=== PATIENT | female | born 1990 | race Caucasian/White ===

== ENCOUNTER 2017-12-31 17:40 | Emergency (ER) | payer SELFPAY ==
[~2017-12-31] VITALS: Ht 157.5 cm; Wt 85.3 kg
[2017-12-31 17:57] VITALS: BP 107/68
[2017-12-31 18:35] LABS: Basophils # (auto) 0.1 uL; Basophils % (auto) 0.7 % (0.0-2.0); Eosinophils # (auto) 0.2 uL; Eosinophils % (auto) 1.5 % (0.0-7.0); Hemoglobin 12.9 g/dL (12.2-16.2); Lymphocytes # (auto) 2.4 uL; Lymphocytes % (auto) 21.7 % (10.0-50.0); Mean Corpuscular Hemoglobin 29.1 pg (28.0-32.0); Mean Corpuscular Volume 88.1 fL (80.0-100.0); Monocytes # (auto) 0.5 uL; Monocytes % (auto) 4.1 % (0.0-12.0); Neutrophils # (auto) 8.1 uL; Nucleated Red Blood Cells % 0.1 %; Red Blood Cells 4.43 10^6/uL (4.0-5.20); Red Cell Distribution Width 14.6 % (11.8-14.3); White Blood Cell 11.2 10^3/uL (4.4-10.8)
[2017-12-31 18:37] LABS: Platelet Count (auto) 132 10^3/uL (140-450)
[2017-12-31 18:55] LABS: Alanine Aminotransferase 13 U/L (13-56); Albumin 3.1 g/dL (3.4-5.0); Alkaline Phosphatase 68 U/L (45-117); Anion Gap 9 (5-15); Aspartate Aminotransferase 8 U/L (15-37); BUN/Creatinine Ratio 17.2; Bilirubin, Total < 0.1 mg/dL (0.2-1.0); Blood Urea Nitrogen 10 mg/dL (7-18); Calcium 8.4 mg/dL (8.5-10.1); Carbon Dioxide 21 mmol/L (21-32); Chloride 106 mmol/L (98-107); GFR African American 159 mL/min; GFR Non-African American 132 mL/min; Glucose 108 mg/dL (74-106); Potassium 3.5 mmol/L (3.5-5.1); Sodium 136 mmol/L (136-145); Total Protein 7.4 g/dL (6.4-8.2)
[2017-12-31 19:11] LABS: Thyroid Stimulating Hormone 5.6 uIU/mL (0.358-3.74)
[2017-12-31 19:48] LABS: Urine Bacteria MANY /hpf (None Seen); Urine Blood Negative /uL (Negative); Urine Mucus FEW (None Seen); Urine Specific Gravity 1.018 (1.001-1.035); Urine WBC 11 /hpf (0 - 5)
== END 2017-12-31 20:39 | disposition home or self-care (01) ==
LOC: ER 17:40
DX: O20.0 Threatened abortion (principal); O23.42 Unspecified infection of urinary tract in pregnancy, second trimester; O99.282 Endocrine, nutritional and metabolic diseases complicating pregnancy, second trimester; Z3A.13 13 weeks gestation of pregnancy
CPT/HCPCS: 36415; 76805; 80053; 81001; 84443; 84702; 85025

== ENCOUNTER → 2018-02-06 | Outpatient (CLI) | payer MEDICAID ==
[2018-02-06 11:31] LABS: Basophils # (auto) 0 uL; Basophils % (auto) 0.3 % (0.0-2.0); Eosinophils # (auto) 0.1 uL; Eosinophils % (auto) 0.7 % (0.0-7.0); Hematocrit 38.3 % (36.0-46.0); Hemoglobin 12.9 g/dL (12.2-16.2); Lymphocytes # (auto) 2.5 uL; Mean Corpuscular Hemoglobin 29.1 pg (28.0-32.0); Mean Corpuscular Hgb Conc. 33.6 g/dL (32.0-36.0); Mean Corpuscular Volume 86.7 fL (80.0-100.0); Monocytes # (auto) 0.6 uL; Monocytes % (auto) 4.9 % (0.0-12.0); Neutrophils # (auto) 8.7 uL; Neutrophils % (auto) 73.1 % (37.0-80.0); Nucleated Red Blood Cells % 0.1 %; Platelet Count (auto) 159 10^3/uL (140-450); Red Blood Cells 4.42 10^6/uL (4.0-5.20); Red Cell Distribution Width 14.5 % (11.8-14.3)
[2018-02-06 13:07] LABS: Alcohol, Urine < 3.0 mg/dL (0-5); Amphetamine Screen, Urine NEGATIVE (NEGATIVE); Barbiturate Scree,Urine NEGATIVE (NEGATIVE); Benzodiazephine Screen, Urine NEGATIVE (NEGATIVE); Cannabinoid Screen, Urine POSITIVE (NEGATIVE); Cocaine Screen, Urine NEGATIVE (NEGATIVE); Opiate Scree,Urine NEGATIVE (NEGATIVE); Phencyclidine Screen, Urine NEGATIVE (NEGATIVE)
== END | disposition home or self-care (01) ==
LOC: LAB 10:31
PROVIDERS: ATTEND Obstetrics & Gynecology
DX: Z34.80 Encounter for supervision of other normal pregnancy, unspecified trimester (principal); Z3A.18 18 weeks gestation of pregnancy
CPT/HCPCS: 36415; 80307; 82310; 83036; 84144; 84439; 84443; 85025; 86703; 86762; 86850; 86900; 86901; 87086; 87088; 87186; 87340

== ENCOUNTER 2018-12-31 03:14 | Emergency (ER) | payer MEDICAID | END 2018-12-31 03:27 | disposition left against medical advice (07) | LOC: ER 03:20 | DX: R53.1 Weakness (principal); Z53.21 Procedure and treatment not carried out due to patient leaving prior to being seen by health care provider ==

== ENCOUNTER 2025-03-29 08:51 | Emergency (ER) | payer MEDICAID ==
[~2025-03-29] VITALS: Ht 157.5 cm; Wt 70.8 kg
--- NOTE | 2025-03-29 09:36 | ED.PDOC ---
History of Present Illness HPI Comments A 34 YEAR OLD FEMALE PRESENTS TO THE ED WITH COMPLAINT OF ABNORMAL VAGINAL BLEEDING WHILE BEING . PATIENT STATES THAT HER LAST MENSTRUAL PERIOD WAS IN FEBRUARY 2025 AND TOOK A HOME TEST THAT CAME BACK POSITIVE. PATIENT IS UNSURE HOW MANY WEEKS SHE IS. PATIENT IS REQUESTING CONFIRMATORY TESTING FOR HER . PATIENT REPORTS THAT SHE IS HAVING VAGINAL BLEEDING AND DESCRIBES IT MILD SPOTTING. PATIENT ALSO REPORTS THAT SHE IS OUT OF HER THYROID MEDICATION AND DOES NOT HAVE A PRIMARY CARE DOCTOR AND IS REQUESTING LEVOTHYROXINE. PATIENT DENIES FEVER, CHILLS, SHORTNESS OF BREATH, CHEST PAIN, ABDOMINAL PAIN, NAUSEA, VOMITING, HEADACHE, OR OTHER COMPLAINTS. NO OTHER SYMPTOMS OR MODIFYING FACTORS AT THIS TIME. PATIENT IS ALERT, ORIENTED X 4, AND HAS STEADY GAIT. Chief Complaint: Time Seen by MD: 09:22 Primary Care Provider: ANTONIO Gomez Notes: Medications, Allergies Allergies: Coded Allergies: NO KNOWN ALLERGIES (Unverified , 12/31/17) Information Source: Patient Mode of Arrival: Ambulatory Severity: Moderate Timing: Days Duration: Since onset Prehospital treatment: None Medication Refill: For: Other (VAGINAL BLEEDING OF ) Past Medical History PAST MEDICAL HISTORY: Thyroid Surgical History: Denies all surgeries SPINNERET CLEANER History: No Pertinent SPINNERET CLEANER History Family History Family History: Unknown Social History Smoker: Non-Smoker Alcohol: Denies ETOH Use Drugs: Marijuana Lives In: Home Constitutional: denies: chills, diaphoresis, fatigue, fever, malaise, sweats, weakness, others EENTM: denies: blurred vision, double vision, ear bleeding, ear discharge, ear drainage, ear pain, ear ringing, eye pain, eye redness, hearing loss, mouth pain, mouth swelling, nasal discharge, nose bleeding, nose congestion, nose pain, photophobia, tearing, throat pain, throat swelling, voice changes, others Respiratory: denies: cough, hemoptysis, orthopnea, SOB at rest, shortness of breath, SOB with excertion, stridor, wheezing, others Cardiovascular: denies: chest pain, dizzy spells, diaphoresis, Dyspnea on exertion, edema, irregular heart beat, left arm pain, lightheadedness, palpitations, PND, syncope, others Gastrointestinal: denies: abdomen distended, abdominal pain, blood streaked bowels, constipated, diarrhea, dysphagia, difficulty swallowing, hematemesis, melena, nausea, poor appetite, poor fluid intake, rectal bleeding, rectal pain, vomiting, others Genitourinary: reports: abnormal vagina bleeding, ; denies: burning, dyspareunia, dysuria, flank pain, frequency, hematuria, incontinence, pain, vagina discharge, urgency, others Neurological: denies: dizziness, fainting, headache, left sided numbness, left sided weakness, numbness, paresthesia, pre-existing deficit, right sided numbness, right sided weakness, seizure, speech problems, tingling, tremors, weakness, others Musculoskeletal: denies: back pain, gout, joint pain, joint swelling, muscle pain, muscle stiffness, neck pain, others Integumetry: denies: bruises, change in color, change in hair/nails, dryness, laceration, lesions, lumps, rash, wounds, others Allergic/Immunocompromised: denies: Difficulty Healing, Frequent Infections, Hives, Itching, others Hematologic/Lymphatic: denies: anemia, blood clots, easy bleeding, easy bruising, swollen glands, others Endocrine: denies: excessive hunger, excessive sweating, excessive thirst, excessive urination, flushing, intolerance to cold, intolerance to heat, unexplained weight gain, unexplained weight loss, others Psychiatric: denies: anxiety, bipolar disorder, depression, hopeless, panic disorder, schizophrenia, sleepless, suicidal, others All Other Systems: Reviewed and Negative Physical Exam General Appearance: No Apparent Distress, Normal HEENT: Normal ENT Inspection, PERRL/EOMI, Pharynx Normal, TMs Normal Neck: Full Range of Motion, Non-Tender, Normal, Normal Inspection Respiratory: Chest Non-Tender, Lungs Clear, No Accessory Muscle Use, No Respiratory Distress, Normal Breath Sounds Cardiovascular: No Edema, No JVD, No Murmur, No Gallop, Normal Peripheral Pulses, Regular Rate/Rhythm Breast Exam: Deferred Gastrointestinal: No Organomegaly, Non Tender, No Pulsatile Mass, Normal Bowel Sounds, Soft Genitalia: Deferred Pelvic: Normal External Exam, Vaginal Bleeding (MILD VAGINAL BLEEDING, NO ACTIVELY VAGINAL BLEEDING AND BLOOD CLOTS. ) Rectal: Deferred Extremities: No calf tenderness, Normal capillary refill, Normal inspection, Normal range of motion, Non-tender, No pedal edema Musculoskeletal : Apperance: Normal Neurologic: Alert, publications editor II-XII nml as Tested, No Motor Deficits, Normal Affect, Normal Mood, No Sensory Deficits Cerebellar Function: Normal Reflexes: Normal Skin: Dry, Normal Color, Warm Peripheral Pulses: 2+ carotid (R), 2+ carotid (L) Lymphatic: No Adenopathy Was a procedure done? Was a procedure done?: No Differential Dx Considerations may include: VAGINAL BLEEDING OF , IUP, ECTOPIC , THREATENED X-Ray, Labs, Meds, VS Vital Signs Date Time Temp Pulse Resp B/P (MAP) Pulse Ox O2 Delivery O2 Flow Rate FiO2 03/29/25 08:57 97.8 69 18 93/61 98 97.8 Lab Test 03/29/25 09:45 03/29/25 09:19 Range/Units White Blood Count 11.2 H 4.4-10.8 10^3/uL Red Blood Count 4.37 4.0-5.20 10^6/uL Hemoglobin 12.6 12.2-16.2 g/dL Hematocrit 37.9 36.0-46.0 % Mean Corpuscular Volume 86.7 80.0-100.0 fL Mean Corpuscular Hemoglobin 28.9 28.0-32.0 pg Mean Corpuscular Hemoglobin Concent 33.3 32.0-36.0 g/dL Red Cell Distribution Width 14.7 H 11.8-14.3 % Platelet Count 169 140-450 10^3/uL Mean Platelet Volume 8.9 6.9-10.8 fL Neutrophils (%) (Auto) 75.7 37.0-80.0 % Lymphocytes (%) (Auto) 17.9 10.0-50.0 % Monocytes (%) (Auto) 4.8 0.0-12.0 % Eosinophils (%) (Auto) 0.8 0.0-7.0 % Basophils (%) (Auto) 0.8 0.0-2.0 % Neutrophils # (Auto) 8.5 1.6-8.6 10 ^3/uL Lymphocytes # (Auto) 2.0 0.4-5.4 10 ^3/uL Monocytes # (Auto) 0.5 0-1.3 10 ^3/uL Eosinophils # (Auto) 0.1 0-0.8 10 ^3/uL Basophils # (Auto) 0.1 0-0.2 10 ^3/uL Nucleated Red Blood Cells 0.1 % Sodium Level 139 136-145 mmol/L Potassium Level 4.1 3.5-5.1 mmol/L Chloride Level 109 H 98-107 mmol/L Carbon Dioxide Level 25 20-31 mmol/L Anion Gap 5 5-15 Blood Urea Nitrogen 10 9-23 mg/dL Creatinine 1.09 H 0.550-1.02 mg/dL Glomerular Filtration Rate Calc 68 >90 mL/min BUN/Creatinine Ratio 9.2 L 10.0-20.0 Serum Glucose 96 74-106 mg/dL Calcium Level 8.7 8.7-10.4 mg/dL Thyroid Stimulating Hormone (TSH) 36.79 H 0.55-4.78 uIU/mL Beta HCG, Quantitative 60827.9 H 1.5-4.2 mIU/mL Urine Color Straw Yellow Urine Clarity Clear Clear Urine pH 6.5 5.0-9.0 Urine Specific [place] 1.005 1.001-1.035 Urine Protein Negative Negative Urine Ketones Negative Negative Urine Blood 3+ H Negative /uL Urine Nitrite Negative Negative Urine Bilirubin Negative Negative Urine Urobilinogen Normal Negative mg/dL Urine Leukocyte Esterase 1+ Negative /uL Urine RBC 2 0 - 4 /hpf Urine Microscopic WBC 7 H 0-5 /HPF Urine Squamous Epithelial Cells Few <5 /hpf Urine Bacteria Few H None Seen /hpf Urine Glucose Normal Normal mg/dL Urine Test Positive Negative PATIENT: AJAY GREENACCT: [id number]: [id number] : 1990 LOC: ER ROOM / BED: / AGE / SEX: 34 / F ADM STATUS: REG ER SERVICE 1046 ORDERING PHYSICIAN: BAMBI GUPTA PROCEDURE(s): OB4US - OB ULTRASOUND COMP LESS 14WKS REASON: VAGINAL BLEEDING, BETA-HC ORDER NUMBER(s): [id number], ACCESSION NUMBER(s): [id number] Technique: Real-time ultrasound images through the pelvis using a transabdominal transducer. Indication: VAGINAL BLEEDING, BETA-HC Comparison: None Findings: The uterus measures 8.6 cm. Intrauterine gestational sac measuring 1.3 cm. crown-rump length 4.6 mm. No yolk sac visualized. No heart tones identified at this time. Right ovary measures 2.3 x 1.9 x 2 cm. Normal flow on color doppler images. Left ovarian cyst with lacy matrix measuring 2.5 cm. Left ovary measures 3.7 x 2.1 x 4.2 cm. Normal flow on color doppler images. No focal masses are identified. There is no significant free fluid in the pelvis. Impression: Intrauterine gestational sac with a crown-rump length 4.6 mm. No heart tones identified. Recommend follow-up ultrasound and beta HCG correlation. Left ovarian cyst, possibly hemorrhagic cyst. Recommend follow-up ultrasound in 6 weeks to ensure resolution ATED BY: TING MCMAHAN MD DICTATED DATE/TIME: 03/29/251204 SIGNED BY: TING MCMAHAN MD SIGNED DATE/TIME: 03/29/251204 X-Ray, Labs, Meds, VS Comment EXTERNAL MEDICAL RECORDS REVIEWED: [NONE] INDEPENDENT HISTORIANS: [NONE] SOCIAL DETERMINANTS OF HEALTH: [NONE] LABS ORDERED: URINE , URINALYSIS, BMP, CBC REVIEWED AND INTERPRETED RESULTS: NONE IMAGING ORDERED: NONE TREATMENTS ORDERED: NO PROCEDURES PERFORMED: NONE CRITICAL CARE TIME: NONE I HAVE DISCUSSED THE PATIENT WITH THE ATTENDING PHYSICIAN, DR. MCGUIRE, AND SHE AGREES WITH THE PATIENT'S PLAN OF CARE AND DISPOSITION. BASED ON HISTORY OF PRESENT ILLNESS, AND PHYSICAL EXAM, PATIENT WILL BE DISCHARGED HOME. SHARED DECISION MAKING: DISCUSSED WITH PATIENT THAT THEIR WORKUP WAS NORMAL. PATIENT INSTRUCTED TO FOLLOW UP WITH CONTACT CENTER ANALYST IN 2 DAYS FOR RE-EVALUATION OF SYMPTOMS. PATIENT VERBALIZES UNDERSTANDING TO RETURN TO ED FOR NEW OR WORSENING SYMPTOMS OR IF FOLLOW UP WITH PCP CANNOT BE OBTAINED. PATIENT FEELS COMFORTABLE GOING HOME AT THIS TIME. ALL QUESTIONS ADDRESSED AT TIME OF DISCHARGE. Time of 1ST Reevaluation: 12:43 Reevaluation 1ST: Improved Patient Education/Counseling: Diagnosis, Treatment, Need For Follow Up Family Education/Counseling: Diagnosis, Treatment, Need For Follow Up Medical Screening: No EMC Exist At This Time SEPSIS Sepsis Screen Date sepsis recognized/suspect: Mar 29, 2025 Time Sepsis recognized/suspect: 0900 Recent Procedure: No On Antibiotic Therapy: No Respiratory Rate >20: No Heart Rate >90: No Temp<36 C (96.8 F) or >38.3 C: No SBP <90 or MAP <65 mmHG: No New Acute Mental Status Change: No Is the patient on CPAP, BIPAP,: No Physician Orders Ob Ultrasound Comp Less 14wks (03/29/25 10:46) Vital Signs Date Time Temp Pulse Resp B/P (MAP) Pulse Ox O2 Delivery O2 Flow Rate FiO2 03/29/25 08:57 97.8 69 18 93/61 98 97.8 Laboratory Tests Test 03/29/25 09:45 White Blood Count 11.2 10^3/uL (4.4-10.8) H Departure 1 Departure Time of Disposition: 12:43 Impression: Primary Impression: Vaginal bleeding affecting early Additional Impressions: Threatened affecting intrauterine Hypothyroidism Qualified Codes: E03.9 - Hypothyroidism, unspecified Disposition: 01 HOME / SELF CARE / HOMELESS Condition: Stable Additional Instructions: FOLLOW-UP WITH PCP IN 1 TO 2 DAYS. F/U CONTACT CENTER ANALYST IN 2 DAYS RECHECK. TAKE MEDICATIONS PRESCRIBED. RETURN TO ED FOR ANY NEW OR WORSENING SYMPTOMS. Discharged With: Self Critical Care Note Critical Care Time?: No Stability Stability form required: No Heart Score Heart Score: Heart Score Response (Comments) Value History N/A 0 EKG N/A 0 Age N/A 0 Risk Factors N/A 0 Troponin N/A 0 Total 0 I personally scribed for BAMBI GUPTA ([email or web address]) on 03/29/25 at 09:36. Electronically submitted by Juan Mcnally ([email or web address]). I personally scribed for BAMBI GUPTA ([email or web address]) on 03/29/25 at 12:36. Electronically submitted by Juan Mcnally ([email or web address]). BAMBI GUPTA Mar 29, 2025 09:36
[2025-03-29 10:00] LABS: Hematocrit 37.9 % (36.0-46.0); Hemoglobin 12.6 g/dL (12.2-16.2); Mean Corpuscular Hemoglobin 28.9 pg (28.0-32.0); Mean Corpuscular Volume 86.7 fL (80.0-100.0); Nucleated Red Blood Cells % 0.1 %
[2025-03-29 10:15] LABS: BUN/Creatinine Ratio 9.2 (10.0-20.0); Blood Urea Nitrogen 10 mg/dL (9-23); Calcium 8.7 mg/dL (8.7-10.4); Glucose 96 mg/dL (74-106)
[2025-03-29 10:25] LABS: Thyroid Stimulating Hormone 36.79 uIU/mL (0.55-4.78)
[2025-03-29 10:34] LABS: Beta HCG, Quantitative 15189.9 mIU/mL (1.5-4.2)
[2025-03-29 10:44] LABS: Anion Gap 5 (5-15); Carbon Dioxide 25 mmol/L (20-31); Potassium 4.1 mmol/L (3.5-5.1); Sodium 139 mmol/L (136-145)
[2025-03-29 10:45] LABS: Chloride 109 mmol/L (98-107)
[2025-03-29 10:55] LABS: Urine Protein, UAD Negative (Negative)
--- NOTE | 2025-03-29 12:05 | DVH ---
Technique: Real-time ultrasound images through the pelvis using a transabdominal transducer. Indication: VAGINAL BLEEDING, BETA-HC Comparison: None Findings: The uterus measures 8.6 cm. Intrauterine gestational sac measuring 1.3 cm. crown-rump length 4.6 mm. No yolk sac visualized. No heart tones identified at this time. Right ovary measures 2.3 x 1.9 x 2 cm. Normal flow on color doppler images. Left ovarian cyst with la cy matrix measuring 2.5 cm. Left ovary measures 3.7 x 2.1 x 4.2 cm. Normal flow on color doppler images. No focal masses are howard ntified. There is no significant free fluid in the pelvis. Impression: Intrauterine gestational sac with a crown-rump length 4.6 mm. No heart tones identified. Balta mmend follow-up ultrasound and beta HCG correlation. Left ovarian cyst, possibly hemorrhagic cyst. Recommend follow-up ultrasound in 6 weeks to ensure re solution
[2025-03-29 12:49] VITALS: BP 113/65; PULSE 58; RESP 16; TEMP 97.7; O2SAT 99
== END 2025-03-29 12:51 | disposition home or self-care (01) ==
LOC: ER 08:51
DX: O20.0 Threatened abortion (principal); O99.281 Endocrine, nutritional and metabolic diseases complicating pregnancy, first trimester; F12.90 Cannabis use, unspecified, uncomplicated; Z3A.01 Less than 8 weeks gestation of pregnancy
CPT/HCPCS: 36415; 76801; 80048; 81001; 81025; 84443; 84702; 85025

== ENCOUNTER 2025-04-15 09:00 | Emergency (ER) | payer MEDICAID ==
[~2025-04-15] VITALS: Ht 162.6 cm; Wt 70.4 kg
--- NOTE | 2025-04-15 10:09 | ED.PDOC ---
General HPI Comments 34-year-old female presents to the ER with a prior surgical history of thyroidectomy and a chief complaint of medication refill. The patient reports on needing her thyroid medication refilled as an STD check. Denies any other associated symptoms. 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 Family History Family History: Reviewed,noncontributory to illness, Unknown Social History Smoker: Unknown Alcohol: Unknown Drugs: Unknown Lives In: Homeless Constitutional: reports: others (Medication refill); denies: chills, diaphoresis, fatigue, fever, malaise, sweats, weakness EENTM: denies: blurred vision, double vision, ear bleeding, ear discharge, ear drainage, ear pain, ear ringing, eye pain, eye redness, hearing loss, mouth pain, mouth swelling, nasal discharge, nose bleeding, nose congestion, nose pain, photophobia, tearing, throat pain, throat swelling, voice changes, others Respiratory: denies: cough, hemoptysis, orthopnea, SOB at rest, shortness of breath, SOB with excertion, stridor, wheezing, others Cardiovascular: denies: chest pain, dizzy spells, diaphoresis, Dyspnea on exertion, edema, irregular heart beat, left arm pain, lightheadedness, palpitations, PND, syncope, others Gastrointestinal: denies: abdomen distended, abdominal pain, blood streaked bowels, constipated, diarrhea, dysphagia, difficulty swallowing, hematemesis, melena, nausea, poor appetite, poor fluid intake, rectal bleeding, rectal pain, vomiting, others Genitourinary: denies: abnormal vagina bleeding, burning, dyspareunia, dysuria, flank pain, frequency, hematuria, incontinence, pain, , vagina discharge, urgency, others Neurological: denies: dizziness, fainting, headache, left sided numbness, left sided weakness, numbness, paresthesia, pre-existing deficit, right sided n umbness, right sided weakness, seizure, speech problems, tingling, tremors, weakness, others Musculoskeletal: denies: back pain, gout, joint pain, joint swelling, muscle pain, muscle stiffness, neck pain, others Integumetry: denies: bruises, change in color, change in hair/nails, dryness, laceration, lesions, lumps, rash, wounds, others Allergic/Immunocompromised: denies: Difficulty Healing, Frequent Infections, Hives, Itching, others Hematologic/Lymphatic: denies: anemia, blood clots, easy bleeding, easy bruising, swollen glands, others Endocrine: denies: excessive hunger, excessive sweating, excessive thirst, excessive urination, flushing, intolerance to cold, intolerance to heat, unexplained weight gain, unexplained weight loss, others Psychiatric: denies: anxiety, bipolar disorder, depression, hopeless, panic disorder, schizophrenia, sleepless, suicidal, others All Other Systems: Reviewed and Negative Physical Exam General Appearance: No Apparent Distress, Normal HEENT: Normal ENT Inspection, Pharynx Normal, TMs Normal Neck: Full Range of Motion, Non-Tender, Normal, Normal Inspection Respiratory: Chest Non-Tender, Lungs Clear, No Accessory Muscle Use, No Respiratory Distress, Normal Breath Sounds Cardiovascular: No Edema, No JVD, No Murmur, No Gallop, Normal Peripheral Pulses, Regular Rate/Rhythm Breast Exam: Deferred Gastrointestinal: No Organomegaly, Non Tender, No Pulsatile Mass, Normal Bowel Sounds, Soft Genitalia: Deferred Pelvic: Deferred Rectal: Deferred Extremities: No calf tenderness, Normal capillary refill, Normal inspection, Normal range of motion, Non-tender, No pedal edema Musculoskeletal : Apperance: Normal Neurologic: Alert, chronometer assembler and adjuster II-XII nml as Tested, No Motor Deficits, Normal Affect, Normal Mood, No Sensory Deficits Cerebellar Function: Normal Reflexes: Normal Skin: Dry, Normal Color, Warm Lymphatic: No Adenopathy Was a procedure done? Was a procedure done?: No X-Ray, Labs, Meds, VS Vital Signs Date Time Temp Pulse Resp B/P (MAP) Pulse Ox O2 Delivery O2 Flow Rate FiO2 04/15/25 09:04 97.5 61 18 111/75 99 97.5 Lab Test 04/15/25 10:44 04/15/25 10:32 04/15/25 10:29 Range/Units Urine Color Light-orange Yellow Urine Clarity Turbid H Clear Urine pH 6.0 5.0-9.0 Urine Specific [place] 1.021 1.001-1.035 Urine Protein Trace H Negative Urine Ketones Negative Negative Urine Blood Trace H Negative /uL Urine Nitrite 2+ H Negative Urine Bilirubin Negative Negative Urine Urobilinogen Normal Negative mg/dL Urine Leukocyte Esterase 3+ Negative /uL Urine RBC 4 0 - 4 /hpf Urine Microscopic WBC 88 H 0-5 /HPF Urine Squamous Epithelial Cells Mod <5 /hpf Urine Bacteria Mod H None Seen /hpf Urine Mucus Few None Seen Urine Yeast (Budding) Occasional None Seen /hpf Urine Glucose Normal Normal mg/dL Urine Test Negative Negative Chlamydia trachomatis ([place]) Pending Neisseria gonorrhoeae ([place]) Pending Vaginal WBC (Wet Prep) Many Vaginal RBC (Wet Prep) Few Vaginal Epithelial Cells (Wet Prep) Moderate Vaginal Bacteria (Wet Prep) Many Vaginal Trichomonas (Wet Prep) Present Vaginal Yeast (Wet Prep) Few Vaginal Clue Cells (Wet Prep) Few Thyroid Stimulating Hormone (TSH) > 150.00 H 0.55-4.78 uIU/mL X-Ray, Labs, Meds, VS Comment 34-year-old female presents to the ER with a prior surgical history of thyroidectomy and a chief complaint of medication refill. Patient arrives alert and oriented, ABC's intact, afebrile, vital signs stable, saturating well in room air Peripheral IV insertion+ labs were ordered. Chlamydia, wet mount, thyroid check, test Urinalysis was ordered to rule out UTI or hematuria. Diagnostic imaging ordered by me and results interpreted by radiology : Labs in the ED showed (pertinent+ and then pertinent-) Patient was given:_. Tolerated medications with no adverse reaction. Additional MDM Review of External, Non-ED records: External records reviewed. Discussion with independent historian (EMS, family) history obtained from the patient/parents (if applicable) at bedside Chronic conditions affecting care: None Social determinants of health affecting care: None Consideration of admission (observation or admission): I considered escalation of care to admission for this patient, however given the reassuring workup, the patient is safe for outpatient management. Discussion with the Radiology: No Tests considered but not performed: Prescription medication considered but not given: 12 lead EKG interpretation: Time of 1ST Reevaluation: 10:30 Reevaluation 1ST: Unchanged Patient Education/Counseling: Diagnosis, Treatment, Prognosis Family Education/Counseling: No Family Present SEPSIS Sepsis Screen Date sepsis recognized/suspect: Apr 15, 2025 Time Sepsis recognized/suspect: 905 Recent Procedure: No On Antibiotic Therapy: No Respiratory Rate >20: No Heart Rate >90: No Temp<36 C (96.8 F) or >38.3 C: No SBP <90 or MAP <65 mmHG: No New Acute Mental Status Change: No Is the patient on CPAP, BIPAP,: No Physician Orders Chlamydia/Gc Amplification (04/15/25 10:01) Vital Signs Date Time Temp Pulse Resp B/P (MAP) Pulse Ox O2 Delivery O2 Flow Rate FiO2 04/15/25 09:04 97.5 61 18 111/75 99 97.5 Departure 1 Departure Time of Disposition: 12:20 Impression: Primary Impression: UTI (urinary tract infection) Qualified Codes: N30.00 - Acute cystitis without hematuria Additional Impressions: Bacterial vaginosis Trichomonas vaginalis (TV) infection Hypothyroid Qualified Codes: E03.9 - Hypothyroidism, unspecified Disposition: HOME / SELF CARE / HOMELESS Condition: Fair e-Prescriptions Levothyroxine Sodium (Synthroid) 137 Mcg Tab 1 TAB PO DAILY for 90 Days, #90 TAB 0 Refills Prov: ARIELLE SKY NP 04/15/25 Sulfamethoxazole W/Trimethopri (Bactrim Ds Tablet) 1 Tab Tb 1 TAB PO BID for 3 Days, #6 TAB 0 Refills Prov: ARIELLE SKY NP 04/15/25 Metronidazole (Metronidazole) 500 Mg Tab 500 MG PO BID for 7 Days, #14 TAB 0 Refills Prov: ARIELLE SKY NP 04/15/25 Critical Care Note Critical Care Time?: No Stability Stability form required: No I personally scribed for ARIELLE SKY NP ([email or web address]) on 04/15/25 at 10:08. Electronically submitted by Carlo Sanchez ([email or web address]). ARIELLE SKY NP Apr 15, 2025 10:08
[2025-04-15 10:49] LABS: Vaginal Bacteria Many
[2025-04-15 10:57] LABS: Vaginal Trichomonas Present
[2025-04-15 10:58] LABS: Vaginal Clue Cells Few; Vaginal Epithelial Cells Moderate
[2025-04-15 11:17] LABS: Urine Budding Yeast OCCASIONAL /hpf (None Seen); Urine Protein, UAD TRACE (Negative)
[2025-04-15] MEDS ORDERED: MET500T PO (12:20)
[2025-04-15] MEDS ORDERED: BACDST PO (12:20)
[2025-04-15] MEDS ORDERED: LEVO-140 PO (12:20)
[2025-04-15 12:30] VITALS: BP 115/76; PULSE 63; RESP 18; TEMP 97.9; O2SAT 99
[2025-04-17 03:07] LABS: Chlamydia Trachomatis, NAA Positive (Negative); Neisseria gonorrhoeae, NAA Positive (Negative)
== END 2025-04-15 12:32 | disposition home or self-care (01) ==
LOC: ER 09:00
DX: N39.0 Urinary tract infection, site not specified (principal); B96.89 Other specified bacterial agents as the cause of diseases classified elsewhere; A59.01 Trichomonal vulvovaginitis; E03.9 Hypothyroidism, unspecified; Z59.00 Homelessness unspecified
CPT/HCPCS: 36415; 81001; 81025; 84443; 87210